=== PATIENT | female | born 2000 | race Caucasian/White ===

== ENCOUNTER 2021-01-14 09:06 | Emergency (ER) | payer OTHER ==
[2021-01-14 09:12] VITALS: BP 133/84; PULSE 82; RESP 18; TEMP 98.4
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
== END 2021-01-14 10:47 | disposition home or self-care (01) ==
LOC: EC 09:06
DX: S09.90XA Unspecified injury of head, initial encounter (principal); R07.9 Chest pain, unspecified; M25.561 Pain in right knee; M25.562 Pain in left knee; V89.2XXA Person injured in unspecified motor-vehicle accident, traffic, initial encounter
CPT/HCPCS: 70450; 71045; 72125; 99285